=== PATIENT | female | born 1975 | race Caucasian/White ===

== ENCOUNTER 2017-09-16 11:25 | Emergency (ER) | payer OTHER ==
[2017-09-16 13:41] VITALS: BP 135/82
--- NOTE | 2017-09-16 13:56 | UC ---
Respiratory Complaint HPI - HPI Summary HPI Summary: Cold Symptoms last night---today chest congestion, fever, chills, body aches - History of Current Complaint Chief Complaint: UCGeneralIllness Stated Complaint: CONGESTED,COUGH Time Seen by Provider: 09/16/17 13:48 Hx Obtained From: Patient Hx Last Menstrual Period: 4 weeks ago ?: No Onset/Duration: Sudden Onset, Lasting Days - 1, Still Present Timing: Constant Severity Initially: Mild Severity Currently: Moderate Pain Intensity: 3 Character: Cough: Nonproductive Aggravating Factors: Nothing Alleviating Factors: Nothing Associated Signs And Symptoms: Positive: Chills, URI, Nasal Congestion - Allergies/Home Medications Allergies/Adverse Reactions: Allergies Allergy/AdvReac Type Severity Reaction Status Date / Time Sulfa (Sulfonamide Allergy Severe Anaphylatic Verified 09/16/17 13:41 Antibiotics) Shock Home Medications: Home Medications Albuterol HFA INHALER* [Ventolin HFA Inhaler*] 1 - 2 puff INH Q4HR PRN 09/16/17 [History Confirmed 09/16/17] Escitalopram (NF) [Lexapro 20 mg (NF)] 20 mg PO DAILY 09/16/17 [History Confirmed 09/16/17] Lansoprazole CAP (NF) [Prevacid CAP (NF)] 15 mg PO DAILY 09/16/17 [History Confirmed 09/16/17] Multiple Vitamins W/ Minerals [Multivitamin Adults] 1 tab PO DAILY 09/16/17 [ History Confirmed 09/16/17] Oxcarbazepine [Trileptal 150 mg] 450 mg PO DAILY 09/16/17 [History Confirmed 09/02] PMH/Surg Hx/FS Hx/Imm Hx Previously Healthy: No Respiratory History: Asthma - Bronchospasm with Respiratory illnesses Psychological History: Depression - Surgical History Surgical History: Yes Surgery Procedure, Year, and Place: [facility] 2014. D&C 2000. 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 Lives: With Family Alcohol Use: Weekly Substance Use Type: None Smoking Status (MU): Never Smoked Tobacco Review of Systems Constitutional: Fever, Chills Skin: Negative Eyes: Negative ENT: Ear Ache, Nasal Discharge, Sinus Congestion Respiratory: Cough Cardiovascular: Negative Gastrointestinal: Negative Genitourinary: Negative Motor: Negative Neurovascular: Negative Musculoskeletal: Arthralgia, Myalgia Neurological: Negative Psychological: Negative Is Patient Immunocompromised?: No All Other Systems Reviewed And Are Negative: Yes Physical Exam Triage Information Reviewed: Yes Appearance: No Pain Distress, Well-Nourished, Ill-Appearing Vital Signs: Initial Vital Signs Temp 99.6 F 09/16/17 13:36 Pulse 90 09/16/17 13:36 Resp 20 09/16/17 13:36 BP 135/82 09/16/17 13:36 Pulse Ox 99 09/16/17 13:36 Vital Signs Reviewed: Yes Eye Exam: Normal Eyes: Positive: Conjunctiva Clear ENT Exam: Normal ENT: Positive: Normal ENT inspection, Hearing grossly normal, Pharynx normal, Nasal congestion, TMs normal, Uvula midline. Negative: Tonsillar swelling, Tonsillar exudate, Trismus, Muffled voice, Hoarse voice, Dental tenderness, Sinus tenderness Dental Exam: Normal Neck exam: Normal Neck: Positive: Supple, Nontender Respiratory Exam: Normal Respiratory: Positive: Chest non-tender, Lungs clear, Normal breath sounds, No respiratory distress, No accessory muscle use Cardiovascular Exam: Normal Cardiovascular: Positive: RRR, No Murmur, Pulses Normal, Brisk Capillary Refill Musculoskeletal Exam: Normal Musculoskeletal: Positive: Strength Intact, ROM Intact Neurological Exam: Normal Neurological: Positive: Alert, Muscle Tone Normal Psychological Exam: Normal Skin Exam: Normal UC Diagnostic Evaluation - Laboratory O2 Sat by Pulse Oximetry: 99 Diagnostic Studies Comment: Influenza A (+) Respiratory Course/Dx - Course Course Of Treatment: Tamiflu, albuterol, asmanex increase fluids, follow with pcp - Differential Dx/Diagnosis Provider Diagnoses: Influenza A Discharge - Discharge Plan Condition: Stable Disposition: HOME Prescriptions: Mometasone 220 MCG MDI * [Asmanex 220 MCG MDI *] 1 puff INH BID #1 mdi Oseltamivir CAP* [Tamiflu CAP*] 75 mg PO BID #10 cap Patient Education Materials: Influenza (ED) Forms: *School Release Referrals: Edelmira Valverde NP [Primary Care Provider] - If Needed
[2017-09-16] MEDS ORDERED: Ibuprofen TAB* 600 MG PO ONE (13:58)
== END 2017-09-16 14:28 | disposition home or self-care (01) ==
LOC: UCEAST 11:25
DX: J11.1 Influenza due to unidentified influenza virus with other respiratory manifestations (principal); J45.909 Unspecified asthma, uncomplicated; F32.9 Major depressive disorder, single episode, unspecified; Z88.2 Allergy status to sulfonamides
CPT/HCPCS: 87502; 99212; A9270-GY; G0463

== ENCOUNTER → 2019-06-29 05:40 | Day surgery (SDC) | payer OTHER ==
--- NOTE | 2019-06-15 09:43 | HP ---
HISTORY AND PHYSICAL: DATE OF ADMISSION/SURGERY: 06/29/19 DATE OF OFFICE VISIT: 06/14/19 SURGEON: Nhung Sykes MD * (DICTATED BY HILLARY CAMARGO) PROCEDURE: Right knee arthroscopy with partial meniscectomy, possible chondroplasty, possible synovectomy, and possible plica excision. CHIEF COMPLAINT: Right knee pain. HISTORY OF PRESENT ILLNESS: Ms. Angeles is a 43-year-old female with continued complaints of right knee pain. She has elected to proceed with a right knee arthroscopy. PAST MEDICAL HISTORY: Anxiety, depression, migraines, asthma, anemia, and history of a peptic ulcer. PAST SURGICAL HISTORY: Two prior right knee surgeries, left knee arthroscopy, D and C x2, and an appendectomy. CURRENT MEDICATIONS: 1. Tramadol 50 mg 3 to 4 times daily as needed. 2. Butalbital/acetaminophen/caffeine 1 to 2 tablets every 6 hours as needed. 3. Trileptal 450 mg a day. 4. Lexapro 20 mg a day. 5. Prevacid 15 mg 2 tabs daily. 6. Albuterol inhaler. 7. Ibuprofen as needed. 8. Mirena. ALLERGIES: SULFA. FAMILY HISTORY: Diabetes, hypertension, coronary artery disease, COPD, CHF, asthma and cancer. SOCIAL HISTORY: She is a 43-year-old female. She lives with her son. She does not smoke or use drugs, uses occasional alcohol. REVIEW OF SYSTEMS: A complete 14-point review of systems was reviewed with the patient. It was all negative or noncontributory. She denies history of DVT, PE , hepatitis, HIV or anesthesia problems. PHYSICAL EXAMINATION GENERAL: She is well developed, well nourished, in no acute distress. VITAL SIGNS: She stands 69 inches tall, weighs 330 pounds. Her blood pressure is 140/80, her heart rate is 70. HEENT: Normocephalic, atraumatic. NECK: Supple. No palpable lymph nodes. PULMONARY: The lungs are clear to auscultation bilaterally. CARDIO: Regular rate and rhythm. Strong S1, S2. ABDOMEN: Soft, nontender, nondistended. NEUROLOGIC: She is alert and oriented x3. MUSCULOSKELETAL: Right lower extremity: The skin is intact. There are no open wounds or abrasions. There is a moderate effusion of the right knee joint. She has some tenderness along the MCL and medial joint line. Positive Apley's and Aguila's. Range of motion is 10 to 120 degrees of flexion. She is able to dorsiflex and plantarflex. She has 2+ dorsalis pedis pulses and intact sensation. ASSESSMENT AND PLAN: Ms. Angeles is a 43-year-old female with acute right knee pain and with mechanical symptoms. An MRI showed a complex tear of the medial meniscus. She has elected to proceed with a right knee arthroscopy with partial meniscectomy, possible chondroplasty, possible synovectomy, and possible plica excision. The surgery is scheduled for 06/29/[address] Sykes discussed the risks and benefits of the surgery at today's visit and all of her questions were answered. She will follow with Dr. Sykes 2 weeks after the surgery. HILLARY CAMARGO [id number]/[facility] #: [id number] [facility]
[~2019-06-29 05:40] MED LIST: Buffered Lidocaine 1% SYRIN* 1 ML/SYRINGE INTRADERM ONE; Chloroprocaine 2%* 20 ML VIAL ONE; Dexamethasone IV* 4 MG/ML 1 ML (4 MG) IV SLOW PU ONE; Dexamethasone IV* 4 MG/ML 1 ML (4 MG) ONE; DiMENhydriNATE IV* 50 MG/ML VIAL IV PUSH PRN; EPINEPHRINE 1 MG/ML 1 ML VIAL ONE; Famotidine IV* 10 MG/ML 2 ML (20 mg) IV ONE; Famotidine IV* 10 MG/ML 2 ML (20 mg) ONE; Ketorolac INJ* 30 MG/ML 1 ML VIAL IV PRN; Ketorolac INJ* 30 MG/ML 1 ML VIAL ONE; Lactated Ringers 1000 ML Bag* 1,000 ML IV SCH; Midazolam* 1 MG/ML 2 ML VIAL (2 MG) ONE; Naloxone* 0.4 MG/ML 1 ML VIAL IV PRN; Phenylephrine 40 MCG/ML SYRINGE ONE; ROPIVACAINE 5 MG/ML 30 ML BTL (0.5%) ONE; ceFAZolin 2 GM in NS PREMIX(*) 2 GM/100 ML BAG IVPB ONE; fentaNYL* 50 MCG/ML 2 ML VIAL (100 MCG VIAL) IV PRN; fentaNYL* 50 MCG/ML 2 ML VIAL (100 MCG VIAL) ONE; methylPREDNISolone ACETATE 80* 80 MG/ML 1 ML VIAL ONE; oxyCODONE/Acetamin 5/325 MG* TAB ONE
[2019-06-29 10:42] VITALS: BP 122/74
--- NOTE | 2019-06-30 04:48 | OP ---
DATE OF OPERATION: 06/29/19 - [facility] DATE OF : 73 ATTENDING SURGEON: Nhung Sykes MD MEDICATION NURSE: HILLARY Richardson. Mr. Bagley did help throughout the procedure with preparation of the leg, retraction, manipulation of the knee, and knee closure. ANESTHESIOLOGIST: Dr. Villa. ANESTHESIA: Spinal. PRE-OP DIAGNOSIS: Right knee medial meniscal tear. POST-OP DIAGNOSES: Right knee medial and lateral meniscal tears, moderate osteoarthritis. OPERATIVE PROCEDURE: Right knee arthroscopy with partial medial meniscectomy and partial lateral meniscectomy. SPECIMENS: None. ESTIMATED BLOOD LOSS: Less than 25 cc. COMPLICATIONS: None. BRIEF HISTORY/INDICATIONS: Ms. Angeles is a 43-year-old female with 3-months of an increase in acute mechanical symptoms of pain at the right knee. MRI confirmed a meniscal tear. She failed conservative treatment and elected to undergo right knee arthroscopy with partial meniscectomy due to continued pain and decreased quality of life. Informed consent was obtained from the patient. She understood the risks of surgery included but were not limited to bleeding , infection, damage to nearby structures, continued pain, need for further surgery, retear of the meniscus, progression of arthritis, anesthesia complications, stroke, heart attack, blood clot, and . She wished to proceed. INTRAOPERATIVE FINDINGS: Intraoperatively, the patient was noted to have a large parrot-beak type tear of the medial meniscus involving the middle and posterior portion of the meniscus in the white-red and red-red zone. This meniscal tear did displace into the joint line. The patient also was noted to have a radial type tear in the anterior portion of the lateral meniscus. The patient was noted to have grade 3 and 4 Outerbridge cartilage changes in both the patellofemoral and lateral joint compartments. DESCRIPTION OF PROCEDURE: Ms. Angeles was identified in the preanesthesia unit. Her right lower extremity was marked as the correct operative site. Informed consent was signed and placed in the chart. The patient was taken to the operating room and placed under anesthesia without complications. Her right lower extremity was prepped and draped in the usual sterile fashion. Preop time-out was made to correctly identify the patient side and site. Appropriate perioperative antibiotics were given within 1 hour of incision. A standard 0.5 cm anterolateral portal incision was made with a 10 blade and carried down to the capsule. Trocar was introduced. As soon as the light and water sources were turned on there was immediate visualization of the suprapatellar pouch. A tour of the knee joint was performed. Suprapatellar pouch had no obvious abnormality. The patellofemoral compartment had some grade 3 and 4 Outerbridge cartilage changes with from frayed cartilage and exposed subchondral bone. The medial gutter had no loose body or plica. Medial compartment showed minimal degenerative changes. There was a large parrot -beak type tear along the posterior and mid portion of the medial meniscus. There was a visible flipped fragment of the meniscus as well. ACL and PCL appeared to be intact. The knee was placed in a [id number] position. There was a radial tear along the anterior horn of the lateral meniscus. There was a visible amount of exposed subchondral bone along the tibial plateau laterally. Under direct visualization a medial portal incision was made with a 10 blade. A probe was introduced and a second tour of the knee joint was performed. No additional findings were noted. The medial meniscal tear was a significant sized parrot-beak type tear with displacement of the tear into the joint recess. This was reduced into the joint line. This involved the white red and red red zone. This is a parrot beak type tear involving the mid portion and posterior aspect of the medial meniscus. Straight biter and shaver were used to excise the meniscal tear. A smooth border of the meniscus was obtained. Further probing of the meniscus showed no additional tears. Radiofrequency ablation wand was used to further smooth the edge of the medial meniscus. The knee was placed in a [id number] position. Shaver and radiofrequency ablation wand were used to excise the anterior lateral meniscus tear which was a radial type tear. A smooth border of the lateral meniscus was obtained. Further probing of the lateral meniscus showed no additional tears. The knee was copiously irrigated with sterile saline. All instruments were removed. Incisions were closed using 3-0 nylon suture. Sterile Xeroform, 4x4, and Webril were used to cover the incision. Siddhartha wrap and cold pack were placed over this. The patient's anesthesia was reversed without difficulty. She was taken to the PACU in stable condition. Intended weight bearing will be weight bearing as tolerated. The patient will follow up in the clinic in 2 weeks' time for suture removal. [id number]/[facility] #: [id number] [facility]AD[facility]
== END | disposition home or self-care (01) ==
LOC: OR 05:40
PROVIDERS: ATTEND Orthopaedic Surgery Adult Reconstructive Orthopaedic Surgery
DX: S83.241A Other tear of medial meniscus, current injury, right knee, initial encounter (principal); S83.281A Other tear of lateral meniscus, current injury, right knee, initial encounter; M17.11 Unilateral primary osteoarthritis, right knee; F41.9 Anxiety disorder, unspecified; F32.9 Major depressive disorder, single episode, unspecified; J45.909 Unspecified asthma, uncomplicated; X58.XXXA Exposure to other specified factors, initial encounter
CPT/HCPCS: A9270-GY; J0690; J1040; J1100; J1885; J2250; J2400; J2795; J3010